=== PATIENT | male | born 2000 | race African-American/Black ===

== ENCOUNTER 2020-12-07 08:59 | Emergency (ER) | payer OTHER ==
[~2020-12-07] VITALS: Ht 137.2 cm; Wt 77.1 kg
[2020-12-07 09:06] VITALS: BP 131/78
[2020-12-07] MEDS ORDERED: PROAIR HFA8.5 GM INH (10:44)
== END 2020-12-07 10:46 | disposition home or self-care (01) ==
LOC: ER 08:59
DX: J06.9 Acute upper respiratory infection, unspecified (principal); J45.909 Unspecified asthma, uncomplicated; Z20.822 Contact with and (suspected) exposure to COVID-19; Z91.013 Allergy to seafood